=== PATIENT | male | born 1985 | race Two or more races ===

== ENCOUNTER 2018-11-07 09:35 | Day surgery (SDC) | payer BC ==
[2018-11-07] VITALS (11 sets, daily range): BP systolic 102–131; BP diastolic 54–66
[~2018-11-07] VITALS: Ht 165.1 cm; Wt 64.4 kg
[~2018-11-07 09:35] MED LIST: LUNESTA1 MG ORAL; TRUVADA 200 MG1 EAC1 ORAL; WELLBUTRIN XL150 M1 ORAL
[2018-11-07] MEDS ORDERED: Bupivacaine 0.25% Inj 30ml INJ ONE (10:39)
[2018-11-07] MEDS ORDERED: Bupivacaine w/Epi 0.5% 30ml Vial INJ ONE (10:39)
[2018-11-07] MEDS ORDERED: EPINEPHrine 1mg/1ml Amp ONE (10:39)
[2018-11-07] MEDS ORDERED: Propofol 200mg/20ml IV ONE (10:44)
[2018-11-07] MEDS ORDERED: Lidocaine 1% MPF 10mg/ml 5ml ONE (10:44)
[2018-11-07] MEDS ORDERED: fentaNYL 100 mcg/2 mL IV ONE (10:45)
[2018-11-07] MEDS ORDERED: Midazolam 2mg/2ml Inj ONE (10:45)
[2018-11-07] MEDS ORDERED: Acetaminophen (Non formulary) 100 ML IV ONE (11:00)
--- NOTE | 2018-11-07 11:27 | Pre-Procedure Note/Attestation ---
Pre-Procedure Note/Attestation Complete Prior to Procedure Planned Procedure: right Procedure Narrative: Right knee arthroscopy with ACL allograft reconstruction and possible mensicus repair Indications for Procedure Pre-Operative Diagnosis: Right knee ACL tear Attestation I attest that I discussed the nature of the procedure; its benefits; risks and complications; and alternatives (and the risks and benefits of such alternatives ), prior to the procedure, with the patient (or the patient's legal patient service representative). I attest that, if there was a reasonable possibility of needing a blood transfusion, the patient (or the patient's legal patient service representative) was given the [facility] standardized written summary, pursuant to the Tello Susan Blood Safety Act ([place] Health and Safety Code # 1645, as amended). I attest that I re-evaluated the patient just prior to the surgery and that there has been no change in the patient's H&P, except as documented below: Lorne Mane MD Nov 07, 2018 11:27
[2018-11-07] MEDS ORDERED: HYDROmorphone 1mg/ml Carpuject SUBQ PRN (11:30)
[2018-11-07] MEDS ORDERED: Tylenol #3 tab (300mg/30mg) ORAL PRN (11:30)
[2018-11-07] MEDS ORDERED: HYDROcodone/Acetamin 5/325 tab ORAL PRN (11:30)
[2018-11-07] MEDS ORDERED: D5 1/2NS 1,000 ML IV SCH (11:30)
--- NOTE | 2018-11-07 11:34 | Anethesia Preoperative Eval ---
Anesthesia Pre-op PMH/ROS General Date of Evaluation: Nov 07, 2018 Time of Evaluation: 11:20 Anesthesiologist: Pao Dumas CRNA ASA Score: ASA 1 Mallampati Score Class I : Soft palate, uvula, fauces, pillars visible Class II: Soft palate, uvula, fauces visible Class III: Soft palate, base of uvula visible Class IV: Only hard plate visible Mallampati Classification: Class II Surgeon: Alhaji Diagnosis: RIGHT knee ACL tear/rupture Surgical Procedure: RIGHT knee arthroscopy, ACL repair with allograft Anesthesia History: none Family History: no anesthesia problems Allergies: Coded Allergies: No Known Allergies (Unverified , 11/06/18) Medications: see eMAR Patient NPO?: Yes NPO Date: Nov 07, 2018 NPO Time: 00:00 Past Medical History Cardiovascular: Denies: HTN, CAD, SD, valve dz, arrhythmia, other Pulmonary: Denies: asthma, COPD, ADAMS, other Gastrointestinal/Genitourinary: Denies: GERD, CRI, ESRD, other Neurologic/Psychiatric: Reports: depression/anxiety; Denies: dementia, CVA, TIA, other Endocrine: Denies: DM, hypothyroidism, steroids, other HEENT: Denies: cataract (L), cataract (R), glaucoma, KAKE (L), KAKE (R), other Hematology/Immune: Denies: anemia, DVT, bleeding disorder, other Musculoskeletal/Integumentary: Reports: other - RIGHT knee injury s/p skiing accident October 2018; Denies: OA, RA, DJD, DDD, edema PMH Narrative: as above PSxH Narrative: none Anesthesia Pre-op Phys. Exam Physician Exam Last Vital Signs Date Time Temp Pulse Resp B/P (MAP) Pulse Ox O2 Delivery O2 Flow Rate FiO2 11/07/18 10:02 Room Air 11/07/18 10:00 97.8 71 18 102/61 100 Constitutional: NAD Neurologic: CN 2-12 intact Cardiovascular: RRR, no M/R/G Respiratory: CTA Gastrointestinal: S/NT/ND Airway Exam Mallampati Score: Class II MO: full Neck: FROM TMD: 3 FB ROM: full Teeth: intact Dentures: no upper, no lower Anesthesia Pre-op A/P Labs reviewed, see chart Risk Assessment & Plan Assessment: ASA 1, ok to proceed Plan: GA Status Change Before Surgery: No Pre-Antibiotics Drug: Pao Guy CRNA Nov 07, 2018 11:34
[2018-11-07] MEDS ORDERED: LR 1000ml ONE (11:45)
[2018-11-07] MEDS ORDERED: Sterile Water Irrig 1000ml IRRIG ONE (11:45)
[2018-11-07] MEDS ORDERED: NS Irrig 4000ml IRRIG ONE (12:15)
[2018-11-07] MEDS ORDERED: Dexamethasone 4mg/ml vial ONE (12:16)
[2018-11-07] MEDS ORDERED: Ketorolac 30mg Inj ONE (12:16)
[2018-11-07] MEDS ORDERED: Metoclopramide 10mg/2ml Inj IVP PRN (12:45)
[2018-11-07] MEDS ORDERED: Hydromorphone 0.5mg/0.5ml inj IVP PRN (12:45)
[2018-11-07] MEDS ORDERED: DiphenhydrAMINE 50mg/ml Inj IVP PRN (12:45)
--- NOTE | 2018-11-07 13:39 | Immediate Post-Op Evaluation ---
Immediate Post-Op Evalulation Immediate Post-Op Evalulation Procedure: RIGHT knee arthroscopy ACL repair with allograft Date of Evaluation: Nov 07, 2018 Time of Evaluation: 13:17 IV Fluids: LR 1000ml Estimated Blood Loss: 20 ml Blood Pressure Systolic: 116 Blood Pressure Diastolic: 57 Pulse Rate: 70 Respiratory Rate: 16 O2 Sat by Pulse Oximetry: 100 Temperature (Fahrenheit): 97.3 Pain Score (1-10): 6 Nausea: No Vomiting: No Complications none Patient Status: awake, reacts, patent, extubated Hydration Status: adequate Drug: cefazolin 2000mg Given Within 1 Hr of Incision: Yes Time Given: 12:05 Pao Dumas CRNA Nov 07, 2018 13:39
[2018-11-07] MEDS ORDERED: Hydromorphone 0.5mg/0.5ml inj ONE (13:40)
--- NOTE | 2018-11-07 13:45 | 48 Hour Post Anesthesia Eval ---
Post Anesthesia Evaluation Procedure: RIGHT knee arthroscopy ACL repair with allograft Date of Evaluation: Nov 07, 2018 Time of Evaluation: 13:44 Blood Pressure Systolic: 117 0: 63 Pulse Rate: 64 Respiratory Rate: 12 Temperature (Fahrenheit): 97.3 O2 Sat by Pulse Oximetry: 100 Airway: patent Nausea: No Vomiting: No Pain Intensity: 4 Hydration Status: adequate Cardiopulmonary Status: stable Follow-up Care/Observations: per ortho Post-Anesthesia Complications: none Follow-up care needed: N/A Pao Dumas CRNA Nov 07, 2018 13:45
--- NOTE | 2018-11-12 01:00 | Operative Note - Dictated ---
DATE OF OPERATION: 11/07/2018 SURGEON: Lorne Mane M.D. NETWORK SUPPORT ADMINISTRATOR: None. ANESTHESIA: General plus local. COMPLICATIONS: None. ANTIBIOTICS: Ancef. PREOPERATIVE DIAGNOSIS: Right knee ACL rupture. POSTOPERATIVE DIAGNOSIS: Right knee ACL rupture. PROCEDURE PERFORMED: Right knee arthroscopy with ACL reconstruction using tibialis anterior allograft with AperFix femoral fixation and Catherine interference screw tibial fixation. BACKGROUND: The patient . All risks, benefits, and alternatives to surgical intervention were discussed in great detail. Risks included, but were not limited to, bleeding, infection, neurovascular injury, need for additional surgical intervention, failure of pain relief, arthrofibrosis, complications of anesthesia, blood clots, stroke, heart attack, and potentially . He understood these risks, amongst others, and consent was signed. PROCEDURE IN DETAIL: The patient was brought into the operating room and placed supine on the operating table. The right knee was correctly verified for surgical site and prepped and draped in standard sterile fashion. Examination under anesthesia revealed 2+ pivot shift and 2+ Ghassan compared to trace and physiologic on the contralateral side. Anterolateral and anteromedial portals were marked and injected with 20 mL of 0.25% Marcaine with epinephrine. A diagnostic arthroscopy was then undertaken. It revealed the followin. Normal suprapatellar pouch. 2. Normal patellofemoral articulation. 3. Normal medial gutter. 4. Normal lateral gutter. 5. Normal lateral compartment. 6. Small superior surface irregularity lateral meniscus (not full-thickness), which was stable. 7. Normal remaining lateral meniscus. 8. Ruptured ACL. 9. Normal PCL. 10. Normal medial compartment. 11. Normal medial meniscus. A probe was used to test the superior abnormality of the posterior horn of lateral meniscus. It did not cause any opening in the surface of the meniscus nor was a full-thickness. It could not be displaced with the probe either. Therefore, no repair was necessary. Radiofrequency device was used to clear all the previous ACL tissue. The [id number] guide was clearly identified. The allograft was prepared on the back table and placed on 15 of tension for 15 minutes. It measured to a 10 mm diameter. An 11 mm AperFix device was chosen and an 11 mm tibial tunnel was drilled using a tibial guide. An [id number] positioner secured in appropriate placement of the femoral tunnel and an 11 mm acorn drill bit was used to create the femoral tunnel. All fluid and debris were evacuated from the tunnel and radiography confirmed no cortical embarrassment. The allograft was then secured into position with the AperFix deployed under direct visualization. With appropriate tension, the interference screw was secured. full range of motion, there was excellent of the allograft. Tension was excellent as well. There was no impingement in full extension nor were there impingements full range of motion along the medial or lateral aspect of the graft. The fluid and debris were evacuated using 10 mL of 0.25% Marcaine with epinephrine were injected. The wounds were copiously irrigated and reapproximated using 4-0 Monocryl in subcuticular fashion. Steri-Strips were used over Mastisol. A dry sterile dressing was applied. A compressive stocking was fitted. He tolerated procedure well. I attest I performed the entire operation. An immobilizer was secured in position. He was transferred to recovery in good condition. Lorne Mane M.D. DR: AMOR JOB#: [id number] CC:
== END 2018-11-07 15:28 | disposition home or self-care (01) ==
LOC: SUR 09:35
DX: S83.511A Sprain of anterior cruciate ligament of right knee, initial encounter (principal); F32.9 Major depressive disorder, single episode, unspecified; F41.9 Anxiety disorder, unspecified; X58.XXXA Exposure to other specified factors, initial encounter; Y92.9 Unspecified place or not applicable
CPT/HCPCS: 29888; 87070; 87075; 87205; C1713; C1776; J0171; J0690; J1100; J1170; J1885; J2250; J2405; J2704; J2765; J3010; 94003; 94150